=== PATIENT | female | born 1940 | race Caucasian/White ===

== ENCOUNTER 2018-02-18 10:09 | Outpatient (CLI) | payer OTHER | END 2018-02-18 10:20 | disposition home or self-care (01) | LOC: SONOGRAMA 10:09 → MAMO-SONO 10:15 → SONOGRAMA 10:20 | DX: E03.4 Atrophy of thyroid (acquired) (principal) ==

== ENCOUNTER 2023-03-31 13:45 | Outpatient (CLI) | payer OTHER | END 2023-03-31 14:01 | disposition home or self-care (01) | LOC: TOM 13:45 | PROVIDERS: ATTEND Specialist | DX: J47.9 Bronchiectasis, uncomplicated (principal); J43.9 Emphysema, unspecified ==